=== PATIENT | female | born 1940 | race Two or more races ===

== ENCOUNTER 2023-07-17 08:47 | Emergency (ER) | payer OTHER ==
[~2023-07-17] VITALS: Ht 165.1 cm; Wt 68.0 kg
[2023-07-17] MEDS ORDERED: CARVEDILOL3.125 M1 PO (09:03)
[2023-07-17] MEDS ORDERED: VALSARTAN40 MG PO (09:03)
== END 2023-07-17 12:28 | disposition home or self-care (01) ==
LOC: ER 08:48
DX: L20.9 Atopic dermatitis, unspecified (principal); B86 Scabies; I10 Essential (primary) hypertension; Z88.0 Allergy status to penicillin